=== PATIENT | male | born 1955 | race Caucasian/White ===

== ENCOUNTER 2023-04-10 09:26 | Emergency (ER) | payer OTHER, SELFPAY ==
[2023-04-10] VITALS (19 sets, daily range): BP systolic 127–180; BP diastolic 73–94; PULSE 67–82; RESP 12–18; TEMP 36.6; O2SAT 97–100
--- NOTE | ~2023-04-10 | XR_ITS ---
EXAMINATION: XR chest 2V DATE: 04/10/2023 10:22 INDICATION: Left-sided chest pain TECHNIQUE: Frontal and lateral views of the chest were obtained. COMPARISON: Chest radiograph dated 09/24/2015 FINDINGS: Large peripherally calcified lesion projecting over the medial side of the left apex most likely eith er a calcified mediastinal lymph node related to old granulomatous disease or a calcified thyroid nod ule. The lungs remain otherwise clear with no focal airspace opacities, pulmonary edema, pleural effu myriam or pneumothorax. The cardiomediastinal silhouette is normal. Severe left glenohumeral osteoarthr itis. Right total shoulder arthroplasty. Anterior plate and screw fixation for lower cervical anterio r spinal fusion. IMPRESSION: 1. No acute cardiopulmonary disease. Reviewed, dictated and finalized at location A.
--- NOTE | 2023-04-10 09:30 | ECG_ITS ---
Measurements Intervals [place] Rate: 75 P: 36 NH: 173 QRS: -19 QRSD: 73 T: 37 QT: 337 QTc: 377 Interpretive Statements SINUS RHYTHM BASELINE ARTIFACT- I, II, III, AVR, AVL, AVF NORMAL ECG NO PREVIOUS ECG AVAILABLE FOR COMPARISON Electronically Signed On 04-10-2023 9:55:32 CDT by Lorenzo Hernández D.O.
[2023-04-10 09:45] LABS: Basophils Absolute Auto 0.1 K/mm3 (0.0-0.1); Basophils Percent Auto 0.6 % (0.2-1.2); Eosinophils Absolute Auto 0.2 K/mm3 (0-0.3); Eosinophils Percent Auto 1.9 % (0-4.4); Hematocrit 39.5 % (42.0-52.0); Hemoglobin 13.2 g/dL (14.0-18.0); Immature Granulocyte Absolute 0.03 K/mm3 (0.00-0.031); Immature Granulocyte Percent A 0.4 % (0-0.5); Lymphocytes Absolute Auto 2.14 K/mm3 (0.9-3.2); Lymphocytes Percent Auto 27.7 % (18.3-44.2); Mean Corpuscular HGB Conc 33.4 g/dl (32-36); Mean Corpuscular Hemoglobin 28.8 pg (26-34); Mean Corpuscular Volume 86.1 fl (80-100); Mean Platelet Volume 10.1 fl (7.4-10.4); Monocytes Absolute Auto 0.6 K/mm3 (0.1-0.6); Monocytes Percent Auto 7.4 % (2.6-8.5); Neutrophils Absolute Auto 4.8 K/mm3 (1.3-6.7); Platelet Count Result 216 k/mm3 (150-375); Red Blood Count 4.59 M/mm3 (4.6-6.20); Red Cell Distribution Width 13.5 % (11.5-14.5); White Blood Count 7.7 K/mm3 (4.5-10.0)
[2023-04-10 09:55] LABS: INR 0.9; Prothrombin Time 13.1 Seconds (11.1-14.7)
[2023-04-10 09:56] LABS: Partial Thromboplastin Time 28.2 SECONDS (22.3-36.8)
[2023-04-10 09:57] LABS: Alanine Aminotransferase 25 U/L (6-50); Albumin Level 4.2 g/dL (3.5-5.1); Alkaline Phosphatase 68 U/L (38-126); Anion Gap 11 mmol/L (8-16); Aspartate Amino Transferase 25 U/L (17-59); Bilirubin,Total 0.5 mg/dL (0.2-1.3); Blood Urea Nitrogen 17 mg/dL (9-20); Calcium 9.2 mg/dL (8.4-10.2); Carbon Dioxide 23 mmol/L (22-30); Chloride 104 mmol/L (98-107); Estimated CRCL calculation 64 ml/min; Estimated Glomerular Filt Rate > 60; Glucose 115 mg/dL (65-110); Lipase 183 U/L (23-300); Sodium 138 mmol/L (137-145)
[2023-04-10] MEDS: ASPIRIN 81 MG CHEWABLE TABLET 324 MG PO (10:03)
[2023-04-10 10:09] LABS: Troponin I < 0.012 ng/mL (0.000-0.034)
--- NOTE | 2023-04-10 11:00 | ED.CHESTPAIN ---
HPI - Chest Pain General Chief Complaint: Chest Pain Stated Complaint: chest pain Time Seen by Provider: 04/10/23 09:38 Source: patient and RN notes reviewed Mode of arrival: ambulatory Limitations: no limitations History of Present Illness HPI narrative: This is 67 year old male who presents for evaluation of chest pain. Patient states last night he had left chest pain that lasted for 2 minutes and it resolved spontaneously. He states his developed pain again this morning that last 1-2 minutes. This pain occurred at rest. HE denies radiation of this pain. He denies associated nausea, vomiting, diaphoresis, cough, shortness of breath, leg swelling. He denies any recent travel. He denies heart disease. Related Data Allergies Allergy/AdvReac Type Severity Reaction Status Date / Time morphine Allergy Intermediate lack of Verified 08/07/16 13:49 saliva making eating difficult gemfibrozil Allergy Mild nausea Verified 08/07/16 13:48 Review of Systems Constitutional: Constitutional: Denies weakness Cardiovascular: Cardiovascular: Reports chest pain, Denies syncope, Denies rapid heart rate, Denies irregular heart rhythm, Denies leg edema and Denies dyspnea Respiratory: Respiratory: Denies chest congestion, Denies hemoptysis, Denies excessive phlegm production and Denies dyspnea Gastrointestinal: Gastrointestinal: Denies abdominal pain, Denies hematochezia, Denies diarrhea and Denies vomiting Genitourinary: Genitourinary: Denies hematuria, Denies dysuria, Denies penile discharge and Denies testicular pain Musculoskeletal: Musculoskeletal: Denies joint swelling, Denies loss of height and Denies muscle weakness Neurologic: Denies syncope, Denies focal weakness and Denies weakness PMFSH Past Medical History Medical History (Updated 04/10/23 @ 13:30 by Mary Butcher MD) Essential (primary) hypertension Other hyperlipidemia Family History Family History (Updated 04/14/16 @ 23:19 by DOCTOR UNKNOWN) Mother Cerebrovascular accident Family history of malignant neoplasm of breast in first degree relative Father Malignant neoplasm of prostate Other Diabetes mellitus Social History Social History Smoking status: Former smoker Alcohol intake: current Exam Const: General: no acute distress and alert Nutritional Appearance: well nourished Orientation/consciousness: patient oriented x3 Limitations: no limitations HENMT: Head: normal to inspection Mouth: Yes Normal oral and palatal mucosa present, Yes lip normal and Yes moist mucous membranes Eyes: EOM: EOMs intact bilaterally Chest: Chest palpation & inspection: normal inspection of the chest Resp: Effort & Inspection: normal respiratory effort Auscultation: clear to auscultation bilaterally Cardio: Rate: regular rate Rhythm: regular rhythm Heart sounds: no murmurs GI: GI Palp: Yes Soft to palpation, No Tenderness to palpation present (GI), No Guarding due to palpation present (GI) and No Rigid due to palpation Auscultation: normal bowel sounds Skin: General skin exam: normal color Rashes: no rashes Wounds: no wounds Neuro: General: patient oriented x3, moves all extremities and CN's II-XI intact bilaterally Extrem: General: normal to inspection, no clubbing, cyanosis or edema and no pedal edema Other: strong palpable bilateral DP,PT pulse Psych: Mental Status: mental status grossly normal Affect: normal affect Attitude: cooperative Course Reevaluation(s) Date: 04/10/23 Time: 13:30 Vital Signs Vital signs: Vital Signs Temperature 97.8 F 04/10/23 09:31 Pulse Rate 75 04/10/23 09:31 Respiratory Rate 16 04/10/23 09:31 Blood Pressure 180/85 H 04/10/23 09:31 Pulse Oximetry 100 04/10/23 09:31 Oxygen Delivery Room Air 04/10/23 09:31 Temperature 97.8 F 04/10/23 09:31 Pulse Rate 82 04/10/23 13:19 Respiratory Rate 16 04/10/23 13:19 Blood Pressure 153/79 H 04/10/23 12:46 Puls
[2023-04-10 12:45] LABS: Troponin I < 0.012 ng/mL (0.000-0.034)
== END 2023-04-10 13:37 | disposition home or self-care (01) ==
PROVIDERS: Emergency Provider General Practice
DX: R07.89 Other chest pain (principal); I10 Essential (primary) hypertension; E78.5 Hyperlipidemia, unspecified
CPT/HCPCS: 36415; 71046; 80053; 83690; 84484; 85025; 85610; 85730; 93005; 99284; A9270

== ENCOUNTER 2023-08-30 05:00 | Outpatient (CLI) | payer OTHER, SELFPAY ==
[2023-08-27 11:58] VITALS: BMI 29.2
--- NOTE | 2023-08-27 11:59 | PC.NURSE ---
Pre Radiology instructions Report to the outpatient [facility] on date _08/30/23____ at time __0800 for procedure Time: __1000__ YOU MAY BE MONITORED AT HOSPITAL FOR UP TO 4 HOURS AFTER YOUR PROCEDURE. A visitor will be allowed to accompany the patient into the hospital. You and your visitor will be asked to self-screen and do not enter if you have any COVID symptoms. A mask is OPTIONAL within the hospital. Patients are to have no food or drink 6 hours prior to procedure time (0400 AM) Driving will be restricted after the procedure, you must have a person to drive you home. Labs will be drawn in preop area and once reviewed, you will be taken to radiology area for procedure. When the procedure is completed, you will be taken to outpatient where you will be monitored for several hours. You may have one visitor in this area. Other than holding anti-coagulants, patient may take other medication(s) as scheduled. Prior to your appointment date patients are instructed to hold anti-coagulants after discussing with ordering provider to stop. If unable to discontinue anti-coagulants please notify radiologist. ? No aspirin or warfarin (Coumadin) for 7 days prior to the procedure. ? No clopidogrel (Plavix), ticagrelor (Brilinta), prasugrel (Effient) or dabigatran (Pradaxa) for 5 days prior to the procedure. ? No rivaroxaban (Xarelto), apixaban (Eliquis), dipyridamole (Aggrenox or Persantine) or cilostazol (Pletal) for 2 days prior to the procedure. Medications to discontinue per physician: ___N/A Date to take last dose: Please leave all valuables, including medications, at home the day of procedure. The hospital will not accept responsibility for valuables. Wear comfortable, loose fitting clothing.? Follow any additional instructions given to you from ordering provider. Telephone instructions given to PT and asked if any additional questions and then verbalized understanding. Patient advised to call scheduling provider office or registration scheduling [phone] if any additional questions.
[2023-08-30] VITALS (8 sets, daily range): BP systolic 113–136; BP diastolic 66–77; PULSE 62–75; RESP 16–18; TEMP 36.4; O2SAT 99–100
--- NOTE | ~2023-08-30 | XR_ITS ---
EXAMINATION: 1. CT thoracic lumbar w con 2. 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 TECHNIQUE: The procedure including the risks, benefits, and alternatives was discussed with the patie nt. Risks discussed included spinal headache, bleeding, and infection. The patient understood the ris ks and agreed to proceed. A timeout was performed to verify the patient's name, date of , and procedure to be performed. The skin overlying the L2-L3 level was prepped and draped in usual steri le fashion. Subcutaneous 1% lidocaine was used for local anesthesia. A 22 gauge spinal needle was a dvanced under fluoroscopic guidance. The needle was removed and the entry site was cleaned and dresse d. There were no immediate complications. Fluoroscopy exposure time was 0.5 minutes. The total numbe r of images was 7. Computed tomography (CT) of the thoracic and lumbar spine was performed without in travenous contrast. Automated exposure control and iterative reconstruction technique were employed. The dose-length product was 1373.55 mGy-cm. FINDINGS: THORACIC AND LUMBAR MYELOGRAM: Real-time fluoroscopy demonstrates the needle at the L2-L3 level. Ther e is indentation of the thecal sac at multiple levels that will be further described on the postmyelo gram CT. CT THORACIC SPINE: There is 7 degrees dextrocurvature of thoracic spine. There are changes of anterio r fusion procedure from C3 to C7 with healed interbody bone graft. There is an anterior plate with sc rews from C3 to C5. There is 2 mm anterolisthesis of C7 on T1, T1 on T2, and T2 on T3. Vertebral body heights are normal. There is severely decreased disc height at C7-T1, mildly decreased disc height a t T1-T2, severely decreased disc height from T2-T3 through T4-T5, moderately decreased disc height at T5-T6, T6-T7, T7-T8, and T8-T9, and mildly decreased disc height at T9-T10, T10-T11, and T11-T12. At T6-T7, the disc is bulging with mild central canal stenosis. At T7-T8, disc is bulging with mild blanka tral canal stenosis. At T8-T9, the disc is bulging with mild central canal stenosis. At T9-T10, there is a left central protrusion with mild central canal stenosis. At T10-T11 and T11-T12, the discs are bulging with mild central canal stenosis. There is multilevel facet joint osteoarthritis, severe on the right from C7-T1 through T5-T6 and severe on the left from C7-T1 through T5-T6. There is multilev el mild neural foraminal stenosis bilaterally. The spinal cord morphology is normal. The conus medull matilde is at L1-L2. CT LUMBAR SPINE: There is 3 mm retrolisthesis of L1 on L2 and 4 mm anterolisthesis of L3 on L4. There are changes of anterior fusion procedures from L3 to S1 with interbody devices and left-sided L3 scr ew. There are changes of posterior fusion procedure from L4 to S1 with pedicle screws. Vertebral body heights are normal. There is moderately decreased disc height at L1-L2 and L2-L3. The following disc levels are specifically discussed: L1-L2: The disc is bulging. There is mild right and moderate left facet joint osteoarthritis. There i s mild bilateral neural foraminal stenosis. There is mild central canal stenosis. L2-L3: The disc is bulging with superimposed left central extrusion. There is mild bilateral facet eri int osteoarthritis. There is mild bilateral neural foraminal stenosis. There is mild central canal st enosis. L3-L4: There is severe bilateral facet joint osteoarthritis. There is mild bilateral neural foraminal stenosis. There is mild central canal stenosis. L4-L5: There is moderate bilateral facet joint hypertrophy. There is mild bilateral neural foraminal stenosis. There is no central canal stenosis. L5-S1: There is mild right facet joint hypertrophy. There is mild bilateral neural foraminal stenosis . There is no central canal stenosis. IMPRESSION: 1. Severe th
[2023-08-30 08:27] LABS: Mean Platelet Volume 10.3 fl (7.4-10.4); Platelet Count Result 214 k/mm3 (150-375)
[2023-08-30 08:38] LABS: INR 0.9; Prothrombin Time 12.9 Seconds (11.1-14.7)
--- NOTE | 2023-08-30 12:05 | SUR.PHASEII ---
Patient experienced bottom foot numbness, small dull headache at 1202. Dr Vuong was called and he evaluated the patient and he determined that it was tim to proceed home.
== END 2023-08-30 12:28 | disposition home or self-care (01) ==
PROVIDERS: Radiology Diagnostic Radiology
PROC: (CPT 62303; principal; 2023-08-30 10:00)
DX: M48.061 Spinal stenosis, lumbar region without neurogenic claudication (principal); Z98.1 Arthrodesis status; M47.894 Other spondylosis, thoracic region; M47.896 Other spondylosis, lumbar region
CPT/HCPCS: 36415; 62305; 72129; 72132; 85049; 85610; Q9965